=== PATIENT | male | born 1955 | race Caucasian/White ===

== ENCOUNTER 2018-03-28 00:17 | Inpatient (IN) | payer OTHER ==
[~2018-03-28] VITALS: Ht 182.9 cm; Wt 95.3 kg
[2018-03-28] MEDS ORDERED: FUROSEMIDE INJ 10 MG/ML 4 ML VIAL ONE (00:25)
[2018-03-28] MEDS ORDERED: NITROGLYCERIN 2% OINT 1 GM PKT ONE (00:25)
[2018-03-28] MEDS ORDERED: FUROSEMIDE INJ 10 MG/ML 4 ML VIAL IV ONE (00:30)
[2018-03-28] MEDS ORDERED: NITROGLYCERIN 2% OINT 1 GM PKT TOP ONE (00:30)
[2018-03-28] MEDS ORDERED: ENOXAPARIN SODIUM INJ 100 MG/ML SYR SC STA (00:40)
[2018-03-28 00:57] LABS: BASOPHILS # (AUTO) 0.1 (0.0-0.1); BASOPHILS % 0.7 % (0.0-1.0); EOSINOPHILS # (AUTO) 0.3 (0.0-0.4); EOSINOPHILS % 1.7 % (0.0-6.0); HEMATOCRIT 47.7 % (38.2-49.6); HEMOGLOBIN 15.8 g/dL (14.0-18.0); LYMPHOCYTES # (AUTO) 6.2 (1.0-3.2); LYMPHOCYTES % 42.1 % (18.0-39.1); MEAN CORPUSCULAR HEMOGLOBIN 30.3 pg (28-32); MEAN CORPUSCULAR HGB CONC 33.1 g/dL (31-35); MEAN CORPUSCULAR VOLUME 91.4 fL (81-99); MONOCYTES # (AUTO) 0.8 (0.2-0.8); MONOCYTES % 5.3 % (4.4-11.3); NEUTROPHILS # (AUTO) 7.3 (2.1-6.9); NEUTROPHILS % 49.5 % (38.7-80.0); PLATELET COUNT 278 x10e3/uL (140-360); RED BLOOD COUNT 5.22 x10e6/uL (4.3-5.7); RED CELL DISTRIBUTION WIDTH 13.7 % (11.7-14.4)
[2018-03-28 01:16] LABS: ALBUMIN/GLOBULIN RATIO 1.1 (0.8-2.0); CALCIUM 9.6 mg/dL (8.4-10.2); CREATININE, SERUM 1.28 mg/dL (0.72-1.25)
[2018-03-28 01:19] LABS: EOSINOPHILS % (MANUAL) 2 % (0-7); LYMPHOCYTES % (MANUAL) 43 % (19-48); MONOCYTES % (MANUAL) 1 % (3.4-9.0); NEUTROPHILS % (MANUAL) 46 % (40-74); PLATELET ESTIMATE ADEQUATE; PLATELET MORPHOLOGY COMMENT NORMAL; RBC MORPHOLOGY COMMENT NORMAL
--- NOTE | 2018-03-28 01:46 | Diagnostic Imaging Report ---
EXAMINATION: CHEST SINGLE (PORTABLE) INDICATION: Shortness of breath COMPARISON: None FINDINGS: TUBES and LINES: None. LUNGS: Lungs are well inflated. There is perihilar interstitial opacities, consistent with interstitial edema. PLEURA: No pleural effusion or pneumothorax. HEART AND MEDIASTINUM: Cardiac size is moderately enlarged. There are atherosclerotic calcifications within the aorta. BONES AND SOFT TISSUES: No acute osseous lesion. Soft tissues are unremarkable. UPPER ABDOMEN: No free air under the diaphragm. IMPRESSION: Moderate cardiogenic pulmonary edema. Signed by: Dr. Trenton Medrano M.D. on 03/28/2018 1:43 AM
[2018-03-28] MEDS ORDERED: SODIUM CHLORIDE FLUSH 10 ML SYR INJ PRN (03:00)
--- OUTSIDE RECORDS SUMMARY | 2018-03-28 03:01 | XMS REPORT ---
[facility] Address Unknown Phone Unavailable Care Team Providers Care Agricultural Equipment Mechanic Name Role Phone SARAHI TRIVEDI Unavailable Unavailable Problems This patient has no known problems. Allergies, Adverse Reactions, Alerts This patient has no known allergies or adverse reactions. Medications This patient has no known medications. Results Test Description Test Time Test Comments Text Results Atomic Results Result Comments CHEST SINGLE (PORTABLE) [place] [id number] Patient Name: SHANTI DUNN MR #: [id number] : 1955 Age/Sex: 63/M Req #: [id number] Adm Physician: Ordered by: SARAHI TRIVEDI MD Report #: [id number] Location: ER Room/Bed: ___ Procedure: [id number] DX/CHEST SINGLE (PORTABLE) Exam Date: 03/28/18 Exam Time: 0100 REPORT STATUS: Signed EXAMINATION: CHEST SINGLE (PORTABLE) INDICATION: Shortness of breath COMPARISON: None FINDINGS: TUBES and LINES: None. LUNGS: Lungs are well inflated. There is perihilar interstitial opacities, consistent with interstitial edema. PLEURA: No pleural effusion or pneumothorax. HEART AND MEDIASTINUM: Cardiac size is moderately enlarged. There are atherosclerotic calcifications within the aorta. BONES AND SOFT TISSUES: No acute osseous lesion. Soft tissues are unremarkable. UPPER ABDOMEN: No free air under the diaphragm. IMPRESSION: Moderate cardiogenic pulmonary edema. Signed by: Dr. Trenton Medrano M.D. on 03/28/2018 1:43 AM Dictated By: TRENTON TESFAYE MD 2 Transcribed By: KAHLIL on 03/28/18142 COPY TO: SARAHI TRIVEDI MD
[2018-03-28 03:45] LABS: CREATINE KINASE MB 3.7 ng/mL (0-5.0)
[2018-03-28] MEDS: NITROGLYCERIN 2% OINT 1 GM PKT TOP SCH ×3 (07:39→17:58)
[2018-03-28] MEDS ORDERED: ENOXAPARIN SODIUM INJ 100 MG/ML SYR SC SCH (09:00)
[2018-03-28 09:14] LABS: INR 1.25; PROTHROMBIN TIME 14.8 seconds (11.9-14.5)
[2018-03-28] MEDS: METOPROLOL TARTRATE 25 MG TAB PO SCH ×2 (09:36→17:06)
[2018-03-28] MEDS: FUROSEMIDE INJ 10 MG/ML 4 ML VIAL IV SCH ×2 (09:36→17:06)
--- NOTE | 2018-03-28 09:53 | History and Physical ---
This is a 63-year-old male patient of mine that presented to the emergency room with the complaint of shortness of breath. CHIEF COMPLAINT: Shortness of breath. HISTORY OF PRESENT ILLNESS: Mr. Bridges is a 63-year-old male patient who presented to the emergency room with shortness of breath. The patient has a history of atrial fibrillation, coronary artery disease and previous angioplasty and stent placement 7 years ago. The patient presented to the emergency room with sudden onset of shortness of breath last night. The patient was not able to sleep flat due to shortness of breath. The patient denies any chest pain or any chest tightness. Chest pain is controlled. PAST MEDICAL HISTORY: CHF, AR, AFib, hypertension. REVIEW OF SYSTEMS: Shortness of breath and weakness. SOCIAL HISTORY: The patient is a heavy smoker. Smokes 1 pack per day and does not use alcohol. FAMILY HISTORY: Hypertension and coronary artery disease. ALLERGIES: NO KNOWN ALLERGIES. MEDICATIONS: See from the list. PHYSICAL EXAMINATION GENERAL: He is a middle-aged male patient lying in bed not in any acute distress. VITALS: Temperature 98, pulse rate 110, blood pressure 120/80, respiration rate 24. HEENT: Normocephalic and atraumatic. JVD LUNGS: Bilateral rales and rhonchi present. HEART: S1 and S2. Irregularly irregular. Systolic murmur. ABDOMEN: Soft and nontender. NEUROLOGICAL: Grossly nonfocal. No neurological deficits. DIAGNOSES 1. Acute decompensated congestive heart failure. 2. Atrial fibrillation with rapid ventricular rate. 3. Hypertension. 4. Coronary artery disease. 5. Renal insufficiency. 6. Leukocytosis. The patient will be admitted with the above diagnoses. The patient will be treated with Lovenox, Lasix and Coumadin will be started, and metoprolol. Cardiology evaluation was done by Dr. Washington and Dr. Amin. Will obtain echocardiogram and V/Q scan. Job#: [id number] LEVI CHAU
--- NOTE | 2018-03-28 10:23 | Consultation ---
DATE OF CONSULTATION: March 28, 2018 CARDIOLOGY CONSULTATION REASON FOR CONSULTATION: CHF. CONSULTING PHYSICIAN: Dr. Jacinto HPI: This is a pleasant 63-year-old male that presented with shortness of breath. According to the patient, the morning he started having severe shortness of breath that started suddenly. He was not able to catch his breath or walk that he decided to come into the emergency room for evaluation. He also complained of orthopnea and not able to catch his breath while laying flat or moving around. He stated having a history of AFib several years ago. Was put on Xarelto, which he stopped 3-4 months ago because he could not afford it. He also had a history of CAD and 1 stent put in the past, but he did not follow up with any rf test technician, and has not been on any beta miguel or diuretic for the last 3-4 months. He also stated he smokes a pack of cigarettes daily. He denied any chest pain, any dizziness, any diaphoresis, or headache. Troponin is negative. EKG with AFib, irregularly irregular. BNP 610. PAST MEDICAL HISTORY: Peripheral neuropathy, hypertension, CHF, [place], and AFib. PAST SURGICAL HISTORY: Cardiac catheterization with stent placement 7-8 years ago. FAMILY HISTORY: Positive for CAD. SOCIAL HISTORY: He smokes a pack of cigarettes daily. Lives at home with the . MEDICATIONS: He was not taking any home medications. ALLERGIES: HE IS NOT ALLERGIC TO ANY MEDICATION. REVIEW OF SYSTEMS: Negative except as mentioned above. Positive for shortness of breath. PHYSICAL EXAMINATION VITALS: Temperature 98, heart rate 91, respirations 18, oxygen saturation 100% on 2 L nasal cannula, blood pressure 123/69. GENERAL: He is awake, alert and oriented times 3. HEENT: Mucous membrane moist. NECK: Supple. LUNGS: Bilateral with decreased breath sounds. CARDIOVASCULAR: Irregularly irregular. ABDOMEN: Soft. NEUROLOGICAL: Intact. EXTREMITIES: With no edema. LABS: Sodium 142, potassium 4, chloride 106, CO2 20, BUN 19, creatinine 1.28, glucose 187. White blood cells 14.8, hemoglobin 15.8, hematocrit 47.7, and platelets 278,000. IMPRESSION 1. Atrial fibrillation. 2. Shortness of breath. 3. Congestive heart failure. 4. Hypertension. 5. Coronary artery disease with cardiac stent history. 6. Acute renal insufficiency. 7. Tobacco abuse. ASSESSMENT AND PLAN: 1. Due to the renal insufficiency, will go ahead and get a V/Q scan. 2. Get an echocardiogram to assess the LV and the valve function. 3. Will continue diuretic and beta miguel. Will hold the CHOCO inhibitor for now due to the renal insufficiency. 4. He was noncompliant with Xarelto because he could not afford it. I discussed about Coumadin and being compliant, and he wanted to be on Coumadin. Will go ahead and check the PT and INR. Start him on low-dose Coumadin. 5. Will also go ahead and put him on fluid restriction and low salt diet. 6. Account Development Associate on tobacco cessation. Further cardiac workup pending clinical course. Thank you for this consultation. DICTATED BY KENYA BEASLEY NP Job#: [id number] LEVI
--- NOTE | 2018-03-28 14:12 | Diagnostic Imaging Report ---
Ventilation/perfusion lung scan Clinical Information: CHF; chronic a-fib; low EF Comparison: Chest radiograph 03/18/2018 Discussion: Xenon-133 gas 14.7 mCi was administered via inhalation. Dynamic images of the lungs in the posterior projection were obtained through single breath, equilibrium, and washout phases. Distribution of tracer activity appears physiologic throughout the lungs.. There are no segmental ventilatory defects. Washout of tracer is diffusely delayed with no evidence of air trapping. Perfusion images of the lungs were obtained in multiple projections following intravenous administration of approximately 7 mCi of Tc-99m MAA. Distribution of tracer appears physiologic throughout the lungs. The contours of the lungs are well demarcated. There are no segmental perfusion defects of any size. The cardiomediastinal silhouette is mildly enlarged. Impression: 1. Normal lung perfusion scan. Scan findings represent a VERY LOW probability for acute pulmonary embolic disease based on the PIOPED II criteria. 2. Scan evidence of diffuse obstructive lung disease. 3. Mildly enlarged cardiac silhouette. Signed by: Dr. Maida Chacko M.D. on 03/28/2018 2:09 PM
[2018-03-28] MEDS ORDERED: WARFARIN SOD 5 MG TAB PO SCH (17:00)
[2018-03-28 17:41] LABS: CREATINE KINASE MB 2.6 ng/mL (0-5.0)
[2018-03-29] VITALS (9 sets, daily range): BP systolic 100–127; BP diastolic 55–75
[2018-03-29] MEDS: NITROGLYCERIN 2% OINT 1 GM PKT TOP SCH ×4 (02:07→18:02)
[2018-03-29 06:40] LABS: BASOPHILS # (AUTO) 0.1 (0.0-0.1); BASOPHILS % 0.6 % (0.0-1.0); EOSINOPHILS # (AUTO) 0.1 (0.0-0.4); EOSINOPHILS % 1.4 % (0.0-6.0); HEMATOCRIT 39.9 % (38.2-49.6); HEMOGLOBIN 13.6 g/dL (14.0-18.0); LYMPHOCYTES # (AUTO) 2.1 (1.0-3.2); LYMPHOCYTES % 24.9 % (18.0-39.1); MEAN CORPUSCULAR HEMOGLOBIN 30.8 pg (28-32); MEAN CORPUSCULAR HGB CONC 34.1 g/dL (31-35); MEAN CORPUSCULAR VOLUME 90.3 fL (81-99); MONOCYTES # (AUTO) 0.5 (0.2-0.8); MONOCYTES % 6.5 % (4.4-11.3); NEUTROPHILS # (AUTO) 5.5 (2.1-6.9); NEUTROPHILS % 65.4 % (38.7-80.0); PLATELET COUNT 185 x10e3/uL (140-360); RED BLOOD COUNT 4.42 x10e6/uL (4.3-5.7); RED CELL DISTRIBUTION WIDTH 13.3 % (11.7-14.4)
[2018-03-29 07:04] LABS: ALANINE AMINOTRANSFERASE 18 IU/L (0-55); ALBUMIN 3.1 g/dL (3.5-5.0); ALBUMIN/GLOBULIN RATIO 0.9 (0.8-2.0); ALKALINE PHOSPHATASE 74 IU/L (40-150); ANION GAP 13.9 mmol/L (8-16); BLOOD UREA NITROGEN 23 mg/dL (7-26); BUN/CREATININE RATIO 24 (6-25); CALCIUM 8.8 mg/dL (8.4-10.2); CARBON DIOXIDE 26 mmol/L (22-29); CHLORIDE 103 mmol/L (98-107); CREATINE KINASE 46 IU/L (30-200); CREATININE, SERUM 0.97 mg/dL (0.72-1.25); EST GLOMERULAR FILTRATION RATE > 60 ML/MIN (60-); GLUCOSE 115 mg/dL (74-118); POTASSIUM 3.9 mmol/L (3.5-5.1); SODIUM 139 mmol/L (136-145)
[2018-03-29] MEDS: METOPROLOL TARTRATE 25 MG TAB PO SCH ×2 (09:16→17:33)
[2018-03-29] MEDS: FUROSEMIDE INJ 10 MG/ML 4 ML VIAL IV SCH ×2 (09:16→17:32)
[2018-03-29] MEDS: LISINOPRIL 2.5 MG TAB PO SCH (09:51)
[2018-03-29] MEDS: WARFARIN SOD 5 MG TAB PO SCH (17:33)
[2018-03-30] VITALS (10 sets, daily range): BP systolic 100–135; BP diastolic 58–76
[2018-03-30] MEDS: NITROGLYCERIN 2% OINT 1 GM PKT TOP SCH ×4 (05:53→17:11)
[2018-03-30] MEDS ORDERED: LIDOCAINE HCL 2% LOCAL 20 ML VIAL ONE (06:53)
[2018-03-30] MEDS ORDERED: IOPAMIDOL 370 MG/ML 200 ML INFUS..BTL INJ ONE ×2 (06:53→07:49)
[2018-03-30] MEDS ORDERED: HEPARIN SOD/SOD CHLORIDE 2,000 ML ONE (06:54)
[2018-03-30] MEDS ORDERED: SODIUM CHLORIDE 0.9% 1000ML 1,000 ML ONE (07:01)
[2018-03-30] MEDS ORDERED: MIDAZOLAM HCL 2 MG/2 ML VIAL ONE (07:23)
[2018-03-30] MEDS ORDERED: FENTANYL CITRATE/PF 100MCG/2 ML INJ ONE (07:23)
[2018-03-30 07:27] LABS: BASOPHILS % 0.4 % (0.0-1.0); EOSINOPHILS # (AUTO) 0.1 (0.0-0.4); EOSINOPHILS % 0.9 % (0.0-6.0); HEMATOCRIT 44.5 % (38.2-49.6); LYMPHOCYTES # (AUTO) 1.7 (1.0-3.2); LYMPHOCYTES % 16.3 % (18.0-39.1); MEAN CORPUSCULAR HEMOGLOBIN 30.7 pg (28-32); MEAN CORPUSCULAR HGB CONC 33.7 g/dL (31-35); MONOCYTES # (AUTO) 0.7 (0.2-0.8); MONOCYTES % 6.3 % (4.4-11.3); NEUTROPHILS % 75.5 % (38.7-80.0); PLATELET COUNT 217 x10e3/uL (140-360); RED BLOOD COUNT 4.89 x10e6/uL (4.3-5.7); RED CELL DISTRIBUTION WIDTH 13.4 % (11.7-14.4)
[2018-03-30 07:46] LABS: INR 1.21; PROTHROMBIN TIME 14.4 seconds (11.9-14.5)
[2018-03-30 07:54] LABS: ANION GAP 13.3 mmol/L (8-16); BLOOD UREA NITROGEN 26 mg/dL (7-26); BUN/CREATININE RATIO 23 (6-25); CALCIUM 9.6 mg/dL (8.4-10.2); CARBON DIOXIDE 29 mmol/L (22-29); CHLORIDE 103 mmol/L (98-107); CREATININE, SERUM 1.13 mg/dL (0.72-1.25); EST GLOMERULAR FILTRATION RATE > 60 ML/MIN (60-); GLUCOSE 125 mg/dL (74-118); POTASSIUM 4.3 mmol/L (3.5-5.1); SODIUM 141 mmol/L (136-145)
[2018-03-30] MEDS: LISINOPRIL 2.5 MG TAB PO SCH (09:00)
[2018-03-30] MEDS: FUROSEMIDE INJ 10 MG/ML 4 ML VIAL IV SCH ×2 (09:00→17:00)
[2018-03-30] MEDS: METOPROLOL TARTRATE 25 MG TAB PO SCH ×2 (11:30→17:00)
[2018-03-30] MEDS: WARFARIN SOD 5 MG TAB PO SCH (17:00)
--- NOTE | 2018-03-30 18:34 | Operative Report ---
DATE OF PROCEDURE: PROCEDURES PERFORMED: 1. Left heart catheterization. 2. Selective coronary angiogram. 3. Left ventriculogram. 4. Abdominal aortogram. 5. Vascade closure device. INDICATIONS: Cardiomyopathy, CHF, history of CAD. ANESTHESIA: Lidocaine 2% for local anesthesia and Versed and fentanyl for conscious sedation. BLOOD LOSS: Minimal. DESCRIPTION OF PROCEDURE: After informed consent, patient was brought to the cardiac catheterization laboratory and placed on the table. Both groins were painted and draped in a sterile fashion. Lidocaine was injected in the right groin for local anesthesia. The right femoral artery was accessed by Seldinger technique, and a 5-Thai sheath was placed in the right femoral artery. Attempt was made to pass a J wire. However, the wire would coil in the infrarenal aorta. So, a Wholey wire was advanced to the ascending aorta. The left main was cannulated using a JL4, 5-Thai catheter. Coronary angiogram was performed, and images were obtained in multiple views. Right coronary artery was cannulated using a 3DRC 5-Thai catheter. Coronary angiogram was performed, and images were obtained in multiple views. LV-gram was performed using a pigtail catheter. Due to difficulty in advancing the wire through the abdominal aorta, an abdominal aortogram was performed. It revealed a saccular infrarenal aneurysm. Patient tolerated the procedure without any complications. At the end of the procedure, the arteriotomy site was closed using a Vascade closure device. REPORT: LEFT MAIN: Normal caliber and there is a 20% distal lesion. LEFT ANTERIOR DESCENDING: Normal caliber with diffuse luminal irregularities. The stent in the proximal LAD is patent. LEFT CIRCUMFLEX: Normal caliber with luminal irregularities. RIGHT CORONARY ARTERY: Normal caliber, has diffuse luminal irregularities with about a 20% to 30% distal lesion. LV-GRAM: Diffuse hypokinesis of the LV is noted with overall ejection fraction 15% to 20%. ABDOMINAL AORTA: There is a saccular infrarenal aneurysm noted. HEMODYNAMICS: The aortic pressure is 109/62. LV pressure is 105/9. LVEDP is 15. Arteriotomy site was closed with a Vascade closure device. PLAN 1. Medical management. 2. The patient will require LifeVest/ICD. 3. CT scan of the abdomen to evaluate the aneurysm down the line. Job#: [id number] EV
[2018-03-31] VITALS: BP 110/60
[2018-03-31 05:00] VITALS: BP 118/71
[2018-03-31] MEDS: NITROGLYCERIN 2% OINT 1 GM PKT TOP SCH ×2 (06:00)
[2018-03-31 07:04] LABS: BASOPHILS % 0.4 % (0.0-1.0); EOSINOPHILS # (AUTO) 0.2 (0.0-0.4); EOSINOPHILS % 1.5 % (0.0-6.0); HEMATOCRIT 43.9 % (38.2-49.6); HEMOGLOBIN 14.7 g/dL (14.0-18.0); LYMPHOCYTES % 20.6 % (18.0-39.1); MEAN CORPUSCULAR HEMOGLOBIN 30.8 pg (28-32); MEAN CORPUSCULAR HGB CONC 33.5 g/dL (31-35); MONOCYTES # (AUTO) 0.7 (0.2-0.8); MONOCYTES % 7.1 % (4.4-11.3); NEUTROPHILS # (AUTO) 6.8 (2.1-6.9); PLATELET COUNT 193 x10e3/uL (140-360); RED BLOOD COUNT 4.77 x10e6/uL (4.3-5.7); RED CELL DISTRIBUTION WIDTH 13.4 % (11.7-14.4)
[2018-03-31 07:15] VITALS: BP 139/76
[2018-03-31 07:21] VITALS: BP 139/76
[2018-03-31 07:21] LABS: INR 1.49; PROTHROMBIN TIME 16.9 seconds (11.9-14.5)
[2018-03-31 07:30] LABS: ALANINE AMINOTRANSFERASE 25 IU/L (0-55); ALBUMIN 3.4 g/dL (3.5-5.0); ALKALINE PHOSPHATASE 78 IU/L (40-150); ANION GAP 13.5 mmol/L (8-16); BLOOD UREA NITROGEN 27 mg/dL (7-26); BUN/CREATININE RATIO 26 (6-25); CALCIUM 9.3 mg/dL (8.4-10.2); CARBON DIOXIDE 27 mmol/L (22-29); CHLORIDE 107 mmol/L (98-107); CREATININE, SERUM 1.04 mg/dL (0.72-1.25); EST GLOMERULAR FILTRATION RATE > 60 ML/MIN (60-); GLUCOSE 110 mg/dL (74-118); POTASSIUM 4.5 mmol/L (3.5-5.1); SODIUM 143 mmol/L (136-145)
[2018-03-31] MEDS: LISINOPRIL 2.5 MG TAB PO SCH (08:30)
[2018-03-31] MEDS: METOPROLOL TARTRATE 25 MG TAB PO SCH (08:30)
[2018-03-31] MEDS: FUROSEMIDE INJ 10 MG/ML 4 ML VIAL IV SCH (08:30)
[2018-03-31] MEDS ORDERED: WARFARIN SODIUM5 MG PO (10:08)
[2018-03-31] MEDS ORDERED: LISINOPRIL2.5 MG PO (10:08)
[2018-03-31] MEDS ORDERED: METOPROLOL TART25 MG PO (10:09)
[2018-03-31] MEDS ORDERED: LASIX40 MG PO (10:12)
[2018-03-31] MEDS ORDERED: LIPITOR20 MG PO (10:12)
--- NOTE | 2018-03-31 15:41 | Discharge Summary ---
He is a 63-year-old male patient of mine, presented with the complaint of shortness of breath. ADMITTING IMPRESSION/DIAGNOSIS 1. Decompensated congestive heart failure. 2. Atrial fibrillation with rapid ventricular rate. 3. Coronary artery disease. 4. Hypertension. 5. Renal insufficiency. 6. Leukocytosis. HOSPITAL COURSE/SUMMARY: Patient was admitted with the above diagnoses. Patient was started on a Lovenox subcutaneous injection, and Coumadin was started. Patient was given Lasix and metoprolol. Patient was not taking any medicine at home as patient was saying he was out of the medicine. With the diuretic treatment, patient did improve and his heart rate got controlled. Patient was taken to the cardiac medical laboratory technicians as patient had echocardiogram, showed ejection fraction of 15% of 20% with global cardiomyopathy. Patient had a coronary angiogram done, and the coronary angiogram had showed a 20% lesion in the left coronary artery and minimal disease in the PDA. Patient had ejection fraction of 15% to 20% with diffuse global hypokinesis. Patient has also infrarenal aortic aneurysm. Patient was placed on a LifeVest and advised for outpatient electrophysiological evaluation and AICD placement. Patient was being anticoagulated with Coumadin. So, patient will be discharged home on a 5 mg Coumadin daily, lisinopril 2.5 mg daily, metoprolol 25 mg twice a day, Lasix 40 mg twice a day, Lipitor 10 mg daily, and patient was advised to follow up with vt outpatient next week for followup as well as for pro time for the Coumadin. Patient will also follow up with the back tacker, Dr. Washington, as outpatient for further care with possible AICD placement to prevent sudden . Patient will need outpatient CT scan of the abdomen to be done here at [facility], and patient will be followed up as outpatient. Depends on the CT scan result and surgical evaluation if needed. JASON DONIS MD Job#: [id number] EV
== END 2018-03-31 10:30 | disposition home or self-care (01) | DRG 287 ==
LOC: ER 00:17 → ERHOLD 02:58 → MED/SURG3 22:43
PROVIDERS: ADMIT Internal Medicine; ATTEND Internal Medicine
PROC: 4A023N7 Measurement of Cardiac Sampling and Pressure, Left Heart, Percutaneous Approach (ICD-10-PCS; principal; 2018-03-30)
PROC: B3101ZZ Fluoroscopy of Thoracic Aorta using Low Osmolar Contrast (ICD-10-PCS; 2018-03-30)
PROC: B2111ZZ Fluoroscopy of Multiple Coronary Arteries using Low Osmolar Contrast (ICD-10-PCS; 2018-03-30)
PROC: B2151ZZ Fluoroscopy of Left Heart using Low Osmolar Contrast (ICD-10-PCS; 2018-03-30)
DX: I11.0 Hypertensive heart disease with heart failure (principal); N17.9 Acute kidney failure, unspecified; R13.10 Dysphagia, unspecified; I50.23 Acute on chronic systolic (congestive) heart failure; I42.8 Other cardiomyopathies; I48.91 Unspecified atrial fibrillation; Z79.01 Long term (current) use of anticoagulants; I25.10 Atherosclerotic heart disease of native coronary artery without angina pectoris; Z95.5 Presence of coronary angioplasty implant and graft; F17.210 Nicotine dependence, cigarettes, uncomplicated; Z91.14 Patient's other noncompliance with medication regimen; I71.4 Abdominal aortic aneurysm, without rupture
CPT/HCPCS: 36140; 36415; 71045; 75625; 77002; 78582; 80048; 80053; 82550; 82553; 83880; 84484; 85025; 85610; 93005; 93306; 93452; 93458; 94660; 96374; 97139; 99284; A9540; A9558; J1650; J1940; J2001; J2250; J7030; Q9967

== ENCOUNTER → 2019-10-02 | Outpatient (CLI) | payer MEDICARE, OTHER ==
[~2019-10-02] MED LIST: LASIX40 MG PO; LIPITOR20 MG PO; LISINOPRIL2.5 MG PO; METOPROLOL TART25 MG PO; WARFARIN SODIUM5 MG PO
--- NOTE | 2019-10-02 14:50 | Diagnostic Imaging Report ---
Exam: Testicular ultrasound. Clinical History: Left testicular swelling Findings: Sonographic evaluation of the testicles. Both testes are normal in echogenicity and size without intratesticular mass. Normal symmetric blood flow. No evidence of testicular torsion. Right: The right testicle measures 4.2 x 3.0 x 2.9 cm and appears unremarkable. The right epididymis measures 0.9 x 0.7 x 1.0 cm and appears unremarkable. Moderate right hydrocele. No varicocele. Left: The left testicle measures 4.8 x 3.2 x 3.2 cm and appears unremarkable. The left epididymis measures 1.0 x 0.7 x 1.1 cm and contains 1.4 x 1.0 x 0.8 cm and 1.1 x 0.5 x 0.5 cm spermatoceles. Large left hydrocele. No varicocele. Impression: No testicular torsion. Moderate right and large left hydroceles. No varicocele. Left spermatoceles. Signed by: Trung Rahman MD on 10/02/2019 2:46 PM
== END ==
LOC: US 11:34
PROVIDERS: ATTEND Internal Medicine
DX: N50.89 Other specified disorders of the male genital organs (principal)
CPT/HCPCS: 76870; 93976

== ENCOUNTER → 2019-11-09 | Outpatient (CLI) | payer MEDICARE, OTHER ==
[~2019-11-09] MED LIST changes: +IOPAMIDOL 370 MG/ML 200 ML INFUS..BTL INJ ONE; +SODIUM CHLORIDE 0.9% 100 ML ONE
[2019-11-09 12:02] LABS: BLOOD UREA NITROGEN 15 mg/dL (7-26); BUN/CREATININE RATIO 14 (6-25); EST GLOMERULAR FILTRATION RATE > 60 ML/MIN (60-)
--- NOTE | 2019-11-09 14:18 | Diagnostic Imaging Report ---
CT of the abdomen and pelvis, with and without contrast. History: Known abdominal aortic aneurysm. Comparison: <None available>. Technique: Multidetector CT scanning of the abdomen and pelvis was performed from the level of the lung bases to the inferior pubic ramus, before and after intravenous demonstration of contrast. No oral contrast was given. Scanning during the precontrast and arterial phases was performed. Sagittal and coronal multiplanar and 3D VRT reformations were obtained. RADIATION DOSE: Total DLP: 759 mGy*cm Dose modulation, iterative reconstruction, and/or weight based adjustment of the mA/kV was utilized to reduce the radiation dose to as low as reasonably achievable. Discussion: Abdominal aorta and proximal branches: An infrarenal abdominal aortic aneurysm is present, beginning just below the accessory left renal artery and extending 7.6 cm in length, to the bifurcation. The maximal diameter of the aneurysm measures 7.6 x 7.3 cm (AP by transverse). A 1.5 cm rim of mural thrombus is identified along the right posterolateral aspect of the aneurysm. There is no evidence of extraluminal contrast extravasation or retroperitoneal hematoma. The suprarenal abdominal aorta is within normal limits. The celiac trunk, SMA, and JOHN PAUL are patent. There is a single right and 2 left renal arteries which are patent. The iliac and femoral arteries are normal in size and patent. Measurements of the aorta are as follows: 2.6 cm at the level of the diaphragmatic hiatus, 2.3 cm at the level of the celiac trunk, 2.3 cm at the level of the SMA, 2.1 cm at level of the renal arteries, and 5.0 x 5.3 cm just above the level of the bifurcation. Lung bases: The heart is enlarged. The visualized lungs are clear. Abdomen: The liver, gallbladder, biliary tree, spleen, pancreas, adrenal glands, and kidneys are normal. The hepatic vein, portal vein, and splenic vein are patent. Evaluation of bowel is limited without oral contrast. There is no bowel dilatation. The appendix is visualized and is normal. Scattered colonic diverticula are present without evidence of adjacent inflammation. There is no evidence of adenopathy or free fluid. A small fat-containing umbilical hernia is present. Pelvis: The bladder, prostate, and seminal vesicles are unremarkable. A small fat-containing left inguinal hernia is present. There is no evidence of free fluid or adenopathy. Bones: Degenerative changes are present throughout the lumbar spine without evidence of lytic or sclerotic lesion. IMPRESSION: 1. Infrarenal abdominal aortic aneurysm measuring up to 7.6 cm in diameter. 2. Minimal colonic diverticula versus without evidence of diverticulitis. 3. Small fat-containing umbilical and left inguinal hernias. Signed by: Noah Michelle on 11/09/2019 2:14 PM
== END ==
LOC: CT 11:04
PROVIDERS: ATTEND Internal Medicine Cardiovascular Disease
DX: I71.4 Abdominal aortic aneurysm, without rupture (principal)
CPT/HCPCS: 36415; 74174; 82565; 84520; J7050; Q9967